=== PATIENT | female | born 1940 | race Hispanic/Latino ===

== ENCOUNTER 2020-07-20 18:27 | Emergency (ER) | payer MEDICARE ==
[2020-07-20 19:39] LABS: BASOPHILS % (AUTO) 0.7 % (0.0-5.0); EOSINOPHILS % (AUTO) 4.4 % (0.0-8.0); HEMATOCRIT 38.2 % (36-48); LYMPHOCYTES % (AUTO) 47.7 % (21.0-51.0); MEAN CORPUSCULAR HEMOGLOBIN 32.1 pg (27.0-33.0); MEAN CORPUSCULAR VOLUME 97.4 fL (79-99); MONOCYTES % (AUTO) 5.8 % (3.0-13.0); NEUTROPHILS % (AUTO) 41.3 % (40.0-77.0); PLATELET COUNT (AUTO) 275 K/uL (130-400); RED BLOOD CELL COUNT(AUTO) 3.92 MIL/uL (4.00-5.50); RED CELL DISTRIBUTION WIDTH 14.4 % (11.0-15.5); WHITE BLOOD COUNT (AUTO) 8.6 K/uL (4.8-10.8)
[2020-07-20 19:53] LABS: CREATININE 1.3 mg/dL (0.5-1.5)
[2020-07-20 19:58] LABS: ALBUMIN 3.1 g/dL (3.5-5.0); TOTAL PROTEIN, SERUM 7.6 g/dL (6.0-8.3)
[2020-07-20 20:14] LABS: BILIRUBIN,TOTAL 0.1 mg/dL (0.2-1.0)
[2020-07-20] MEDS ORDERED: KETOROLAC TROMETHAMINE 30MG/ML ONE (22:10)
== END 2020-07-20 23:01 | disposition home or self-care (01) ==
LOC: EDH 18:27
DX: F41.8 Other specified anxiety disorders (principal); R06.02 Shortness of breath; Z20.822 Contact with and (suspected) exposure to COVID-19; I10 Essential (primary) hypertension
CPT/HCPCS: 36415; 71045; 80053; 82550; 84484; 85025; 87426; 93005; 99285; U0003; J1885